=== PATIENT | male | born 2000 | race Caucasian/White ===

== ENCOUNTER 2022-09-25 12:39 | Emergency (ER) | payer BC, SELFPAY ==
--- NOTE | ~2022-09-25 | XR_ITS ---
XR chest 2V DATE: 09/25/2022 13:20 INDICATION: Right anterior chest pain. Cough. TECHNIQUE: 2 views COMPARISON: None FINDINGS: Normal heart size. No hilar or mediastinal enlargement. Lungs are normally inflated and naseem ar of infiltrate or consolidation. No pleural effusion or pulmonary vascular congestion or pneumothor ax. IMPRESSION: Negative Reviewed, dictated and finalized at location A. IMPRESSION: Negative
[2022-09-25 12:50] VITALS: BP 113/65; PULSE 74; RESP 14; TEMP 36.1; O2SAT 99
[2022-09-25 13:02] VITALS: BP 113/65; PULSE 74; RESP 14; TEMP 36.1; O2SAT 99
--- NOTE | 2022-09-25 13:15 | ED.GENADULT ---
HPI - General Adult General Chief complaint: Chest Pain Stated complaint: Right Side/Rib Pain Source: patient Mode of arrival: ambulatory Limitations: no limitations History of Present Illness HPI narrative: Patient is a transgender female presents for evaluation of what she states is right sided rib pain. Patient woke from sleep this morning with the pain. She has experienced similar symptoms in the past. Symptoms occur every 1.5 months and usually last about ten minutes. Today symptoms lasted until she arrived here at this facility. She had taken tramadol just prior to arrival. Pain was sharp and 8/10 severity. She had some nausea without vomiting. No change in bowel pattern. She reports a nonproductive cough for the last 1.5 months. She smokes cigarillos. Denies SOB or pleuritic chest pain. Related Data Home Medications Medication Instructions Recorded Confirmed cariprazine 1.5 mg capsule 1.5 mg PO DAILY 09/25/22 09/25/22 (Vraylar) estradiol 2 mg tablet 40 mg PO DAILY 09/25/22 09/25/22 progesterone micronized 100 mg 100 mg PO QAM 09/25/22 09/25/22 capsule Allergies Allergy/AdvReac Type Severity Reaction Status Date / Time No Known Allergies Allergy Verified 09/25/22 12:59 Review of Systems Review of Systems: CONSTITUTIONAL: Denies fever, chills, or sweats. EYES: Denies visual changes, redness, or discharge. ENT: Denies rhinorrhea, congestion, sore throat, or otalgia. CARDIOVASCULAR: Denies chest pain, palpitations, or edema. RESPIRATORY: Reports cough. Denies dyspnea. GASTROINTESTINAL: Denies abdominal pain, nausea, vomiting, or diarrhea. GENITOURINARY: Denies dysuria or hematuria. SKIN: Denies rash or itching. MUSCULOSKELETAL: Reports right rib pain. Denies back pain, joint pain, or myalgia. NEUROLOGIC: Denies headache, numbness, dizziness, or weakness. PSYCHIATRIC: Denies anxiety or depression. [facility] Past Medical History Medical History (Updated 09/25/22 @ 13:50 by Dimitris Black, MARIANGEL, ) Hypertension Surgical History Surgical History No pertinent past surgical history Family History Family History Mother Family history non-contributory Social History Social History Smoking status: Current every day smoker Substance use: current Substance use type: marijuana Gender identity (if verbalized by the patient): Transgender Female Spiritual care concerns: No Exam Narrative: GENERAL: Well-appearing, well-nourished, and in no acute distress. HEAD: Normocephalic, atraumatic. EYES: PERRLA and EOMI. ENT: Nares clear, no rhinorrhea or epistaxis. Mucous membranes moist. Oropharynx without tonsillar hypertrophy exudate or other lesions. Bilateral TMs pearly esparza nonbulging NECK: Supple. No adenopathy or masses. No carotid bruits or JVD CHEST: Clear to auscultation. No respiratory distress. No wheezes rales or rhonchi. No chest wall tenderness HEART: Regular rate and rhythm. No murmur heard. Normal peripheral pulses. ABDOMEN: Soft, nondistended, normal active bowel sounds. RUQ tenderness without rebound or guarding EXTREMITIES: Normal range of motion. No edema. SKIN: Warm, dry, no rash. NEURO: No focal deficits. Alert and oriented x3. PSYCH: Normal mood and affect. Course Course Emergency Course: This is a 22-year-old transgender female who presented for evaluation of which she states is right rib pain. On exam she was actually tender in the right upper quadrant but not over the ribs. I suspect that her pain is gallbladder in origin. She denies any pain whatsoever at the present time, which is why did not send her to the emergency department. She will likely benefit from a right upper quadrant ultrasound which can be done outpatient. I advised that she follow a low-fat diet. C
== END 2022-09-25 14:00 | disposition home or self-care (01) ==
PROVIDERS: Emergency Provider Nurse Practitioner
DX: R10.11 Right upper quadrant pain (principal); F17.200 Nicotine dependence, unspecified, uncomplicated; F12.90 Cannabis use, unspecified, uncomplicated; I10 Essential (primary) hypertension
CPT/HCPCS: 71046; 99213; G0463